=== PATIENT | male | born 1980 ===

== ENCOUNTER 2017-03-24 17:53 | Emergency (ER) | payer SELFPAY ==
[2017-03-24 18:04] VITALS: O2SAT 100
--- NOTE | 2017-03-24 18:29 | C.PDOC ---
History Of Present Illness 36 y/o male presents to the ER for epididiymal pain (L>R) which has been present for the past 6 months. Patient reports that he was a victim of a fall and he has a history of pelvic fracture. Patient does not have any other medical complaints. (Anthony Izquierdo) History Per: Patient History/Exam Limitations: no limitations Onset/Duration Of Symptoms: Days Current Symptoms Are (Timing): Still Present Severity: Moderate Time Seen by Provider: 03/24/17 18:21 Chief Complaint (Nursing): Male Genitourinary Past Medical History Reviewed: Historical Data, Nursing Documentation, Vital Signs - Medical History PMH: No Chronic Diseases Surgical History: No Surg Hx Family History: States: No Known Family Hx - Social History Hx Alcohol Use: No Hx Substance Use: No - Immunization History Hx Tetanus Toxoid Vaccination: No Hx Influenza Vaccination: No Hx Pneumococcal Vaccination: No Vital Signs: Last Vital Signs Temp 97.8 F 03/24/17 20:04 Pulse 62 03/24/17 20:04 Resp 20 03/24/17 20:04 BP 110/68 03/24/17 20:04 Pulse Ox 100 03/24/17 20:12 Review Of Systems Except As Marked, All Systems Reviewed And Found Negative. Musculoskeletal: Positive for: Other (epididimyal pain) Neurological: Negative for: Weakness, Numbness Physical Exam - Physical Exam Appears: Non-toxic, No Acute Distress Skin: Normal Color, Warm Head: Atraumatic, Normacephalic Eye(s): bilateral: Normal Inspection, PERRL Nose: Normal Oral Mucosa: Moist Neck: Supple Chest: Symmetrical Cardiovascular: Rhythm Regular Respiratory: Normal Breath Sounds, No Accessory Muscle Use Gastrointestinal/Abdominal: Normal Exam, Soft, No Tenderness Male Genital: Normal Inspection, Other (mild easily reducible inguinal hernias, mildly enlarged L>R epididimyal) ED Course And Treatment O2 Sat by Pulse Oximetry: 100 (RA) Pulse Ox Interpretation: Normal Medical Decision Making Medical Decision Making: chronic L>R epididimyal discomfort. ? STD related 1899: signed over to Covering ED shift to f/u US, labs, UA and dispo appropriately (Anthony Izquierdo) 2320 Pt resting quietly no distress. Scrotal pain for over 6 months, worse at night. Disc test results, plan for follow up with urologist, and rtr. He v/u and agrees w plan. All questions and concerns addressed at this time. EXAM: US Scrotum EXAM DATE/TIME: 03/24/2017 6:29 PM CLINICAL HISTORY: 36 years old, male; Pain; Scrotum pain; Additional info: L>r epididymal pain x 6 months TECHNIQUE: Real-time ultrasound of the scrotum with color Doppler and image documentation. COMPARISON: No relevant prior studies available. FINDINGS: The testicles are symmetric and homogeneous bilaterally. The right testicle measures 4.5 x 2.3 x 3.2 cm and the left testicle measures 4.5 x 2 x 3.2 cm. Color flow and arterial waveforms are demonstrated to the testicles bilaterally (no torsion). The epidiymis are normal bilaterally. IMPRESSION: No acute findings. (Josr Pisano) Disposition Doctor Will See Patient In The: Office - Disposition Disposition Time: 19:00 - Disposition Condition: GOOD Forms: CareNumber 100 Connect (Polish) - Clinical Impression Clinical Impression: Epididymal pain - Scribe Statement The provider has reviewed the documentation as recorded by the Scribe - Scribe Statement Adi Diaz (Anthony Izquierdo) Provider Attestation: All medical record entries made by the Scribe were at my direction and personally dictated by me. I have reviewed the chart and agree that the record accurately reflects my personal performance of the history, physical exam, medical decision making, and the department course for this patient. I have also personally directed, reviewed, and agree with the discharge instructions and disposition. (Anthony Izquierdo) Physician Patient Turnover Patient Signed Over To: Josr Pisano Handoff Comments: please follow-up UA, GC, US
[2017-03-24 19:18] LABS: SQUAMOUS EPITHIAL < 1 /hpf (0-5); URINE BILIRUBIN NEGATIVE (NEGATIVE); URINE BLOOD NEGATIVE (NEGATIVE); URINE CLARITY Hazy (Clear); URINE COLOR Yellow (YELLOW); URINE GLUCOSE (UA) NORMAL (Normal); URINE LEUKOCYTE ESTERASE NEG Leu/uL (Negative); URINE NITRATE NEGATIVE (NEGATIVE); URINE PROTEIN NEGATIVE (NEGATIVE); URINE UROBILINOGEN NORMAL mg/dL (0.2-1.0)
[2017-03-24 20:04] VITALS: RESP 20
--- NOTE | 2017-03-24 22:42 | US ---
EXAM: US Scrotum EXAM DATE/TIME: 03/24/2017 6:29 PM CLINICAL HISTORY: 36 years old, male; Pain; Scrotum pain; Additional info: L>r epididymal pain x 6 months TECHNIQUE: Real-time ultrasound of the scrotum with color Doppler and image documentation. COMPARISON: No relevant prior studies available. FINDINGS: The testicles are symmetric and homogeneous bilaterally. The right testicle measures 4.5 x 2.3 x 3.2 cm and the left testicle measures 4.5 x 2 x 3.2 cm. Color flow and arterial waveforms are demonstrated to the testicles bilaterally (no torsion). The epidiymis are normal bilaterally. IMPRESSION: No acute findings.
[2017-03-24 23:48] VITALS: BP 112/69; PULSE 64; TEMP 97.9
== END 2017-03-24 23:47 | disposition home or self-care (01) ==
LOC: C.ER 17:53
DX: N50.89 Other specified disorders of the male genital organs (principal)